=== PATIENT | male | born 1945 | race Caucasian/White ===

== ENCOUNTER 2025-04-07 18:58 | Emergency (ER) | payer MEDICARE, SELFPAY ==
[2025-04-07 19:00] VITALS: BP 114/78; PULSE 55; RESP 13; TEMP 36.5; O2SAT 95; BMI 42.7
--- NOTE | 2025-04-07 19:22 | EX.ED.DYSGE1 ---
HPI History of Present Illness Chief Complaint: Syncope Detail of Chief Complaint: Syncope Informant: patient Narrative Narrative: Patient presents via EMS for syncopal episode that occurred this afternoon. Patient states that they had driven down from [facility] to go to a restaurant. Once they get to the restaurant the patient did not feel well. He has been having bouts of chronic diarrhea for months for which he has seen nurse head and his primary care physician. He states that he got up to use the restroom and had large amount of watery stool. Came back to the table and continued to feel poorly and went back and had a second bout of watery stool. Patient stood up off the toilet and started having the room spinning around and around then he was diaphoretic. People helped him into his seat and then he became unresponsive for about 30 seconds. EMS was called and he was brought to the emergency department. He denies any chest pain or shortness of breath. He states he had a heart cath last August that did not show any blockages and he did not require any type of intervention. PFSH PFS Medical History no medical history Home Medications ?Medication ?Instructions ?Recorded ?Last Taken ?Type ondansetron 4 mg disintegrating 4 mg PO Q8H PRN PRN Nausea #10 tabs 04/07/25 Unknown Rx tablet Allergy/AdvReac Type Severity Reaction Status Date / Time Penicillins Allergy Hives Verified 04/07/25 19:43 levetiracetam (From [facility]) AdvReac unknown Verified 04/07/25 19:43 Family History no significant family his Surgical History no surgical history Social History Smoking Status: Former smoker ROS ROS ED ROS Narrative Syncope Review of Systems ROS Unobtainable: other Constitutional Constitutional ED: Reports lethargy; Denies chills, fever(s), sweats or weight loss Eyes Eyes: Denies blurry vision, change in vision or diplopia ENT ENT ED: Denies rhinorrhea or sore throat Cardiovascular Cardiovascular: Denies chest pain, orthopnea or racing heartbeat Respiratory/Chest Respiratory/Chest: Reports dyspnea and dyspnea on exertion; Denies cough, orthopnea or sputum Gastrointestinal Gastrointestinal: Reports diarrhea and nausea; Denies abdominal pain or vomiting Genitourinary Genitourinary ED: Denies dysuria, hematuria or urinary frequency Musculoskeletal Musculoskeletal: Denies arthralgias, back pain, myalgias or neck pain Integumentary Denies abscess, Abrasions or rash Neurologic Neurologic: Denies headache(s) or weakness Psychiatric Psychiatric: Denies anxiety, depression or suicidal thoughts Endocrine Endocrinology: Denies polydipsia, polyphagia or polyuria Hematologic/Lymphatic Hematologic/Lymphatic: Denies easy bleeding, easy bruising or lymphadenopathy Allergic/Immunologic Allergic/Immunologic ED: Denies mouth swelling, tongue swelling or urticaria EXAM Physical Exam Const Vital Signs: 04/07/25 19:00 04/07/25 19:40 04/07/25 20:00 Temperature 97.7 F L Temperature Source Oral Pulse Rate 55 L 62 Respiratory Rate 13 12 Respiratory Effort Normal Non-Labored Respiratory Pattern Normal Blood Pressure 114/78 125/51 H Blood Pressure Mean 90 75 Pulse Ox 95 95 Oxygen Delivery Method Room Air Room Air 04/07/25 21:01 Temperature Temperature Source Pulse Rate 57 L Respiratory Rate 16 Respiratory Effort Respiratory Pattern Blood Pressure 119/48 L Blood Pressure Mean 71 Pulse Ox 95 Oxygen Delivery Method Room Air Positive well nourished and well developed General Appearance ED: well developed and NAD HEENT Reports TM's clear and moist mucous membranes normocephalic and atraumatic; Negative for trauma or tenderness Tympanic Membrane ED: Yes TM's clear Eyes PERRL and EOMs intact bilaterally General Eye ED: Negative for pale conjunctiva or scleral icterus Neck no lymphadenopathy, supple and no JVD General: Negative for tenderness Chest Wall inspection of chest normal and palpation of chest normal Chest: Negative for tenderness Resp normal respiratory effort and clear to auscultation bilaterally Effort and Inspection: Negative for respiratory distress or pain with movement Auscultation: Negative for rhonchi, wheezes or diminished lung sounds Cardio regular rate, regular rhythm, S1 normal heart sound, S2 normal heart sound and no murmurs Peripheral Pulses: pulses 2+ throughout GI normal to inspection, nondistended, normoactive bowel sounds, soft to palpation, non-tender, non-distended and no masses Back/Spine no CVA tenderness and no thoracic nor lumbar tenderness Extremity normal to inspection General Extremety ED: Negative for edema General Extremity: Negative for edema Neuro oriented x3, CN's II-XII intact bilaterally, no sensory deficits noted and gait normal Sensorium / Orientation: awake, alert, oriented to person, oriented to place and oriented to time Motor Exam: strength 5/5 throughout and strength abnormal Psych mental status grossly normal Skin no rashes or lesions noted and no wounds MDM MDM MDM Narrative Medical decision making narrative: Patient presents with a syncopal episode. He had diarrhea prior to the syncopal episode. He has had chronic diarrhea for months for which she is following up with GI. He has had testing for C. difficile apparently and has been negative. Patient denies chest pain or shortness of breath. Abdominal exam is benign. Suspect likely vasovagal episode. IV line established. 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 EKG obtained showed a sinus bradycardia with rate of 53 bpm with first-degree AV block and no acute ST segment changes. CBC with differential shows a white count of 11.3 with hemoglobin 12.9 and platelet count of 233. Chemistries unremarkable. Other than a low potassium of 3.0 for which I did give him 40 mEq of potassium chloride p.o. Calcium slightly depressed at 7.5. Patient received a liter of fluid bolus and was given Zofran 4 mg IV and felt markedly improved after treatment. At this point will discharge to home. Will give a prescription for Zofran. Advised to follow-up with primary care physician within next 3 to 5 days. Lab Data Attestation: I reviewed the patient's lab results. Labs: Laboratory Results - last 24 hr 04/07/25 19:50 WBC 11.3 H RBC 4.18 L Hgb 12.9 L Hct 39.0 L MCV 93.3 MCH 30.9 MCHC 33.1 RDW Std Deviation 46.3 H RDW Coeff of [place] 13.7 Plt Count 233 MPV 9.6 Immature Gran % (Auto) 0.500 Neut % (Auto) 70.3 H Lymph % (Auto) 21.2 [place] % (Auto) 5.1 Eos % (Auto) 2.3 Baso % (Auto) 0.6 Absolute Neuts (auto) 7.9 H Absolute Lymphs (auto) 2.39 Nucleated RBC % 0 Sodium 141 Potassium 3.0 L Chloride 104 Carbon Dioxide 22.4 Anion Gap 15 BUN 11 Creatinine 1.02 Estim Creat Clear Calc 79.93 Est GFR (MDRD) Non-Af 74 BUN/Creatinine Ratio 11.1 Glucose 104 H Calcium 7.5 L EKG Initial EKG: Attestation: I personally reviewed and interpreted this EKG as follows: Comments: Sinus rhythm with ventricular rate of 53 bpm with a first-degree AV block Discharge Plan Triage Chief Complaint: Syncope Other Complaint: Nausea/Vomiting/Diarrhea ED Provider: Holly Mckinnon Dx/Rx/DC Orders Clinical Impression: Syncope, vasovagal Instructions: ED Fainting, Vagal Reaction Prescriptions: New ondansetron 4 mg tablet,disintegrating 4 mg PO Q8H PRN PRN (Reason: Nausea) Qty: 10 0RF Primary Care Provider: Narinder Rivera,Out of Referrals: [facility] ,Out of [Primary Care Provider] - Activity Restrictions/Additional Instructions: Follow-up with your primary care physician within next 3 to 5 days. Print Language: Persian Disposition Disposition: Home, Self Care
[2025-04-07] MEDS: Ondansetron 4 MG/2 ML Vial IV (19:36)
[2025-04-07] MEDS: 0.9% Normal Saline (1000mL) 1,000 ML 1000 ML IV (19:36)
[2025-04-07 19:59] LABS: Absolute Lymphocyte Count 2.39 X10^3/uL (0.83-4.51); Absolute Neutrophil Count 7.9 X10^3/uL (2.0-7.7); Basophil# 0.07 X10^3/uL; Basophil% 0.6 % (0-1); Eosinophil# 0.26 X10^3/uL; Eosinophils% 2.3 % (0-5); Hemoglobin 12.9 g/dL (13.0-16.5); Lymphocyte # 2.39 X10^3/ul (0.83-4.51); Lymphocyte % 21.2 % (19-41); Mean Corp Hgb Conc 33.1 g/dL (32-36); Mean Corpuscular Hgb 30.9 pg (27.0-32.0); Mean Corpuscular Volume 93.3 fL (80-94); Mean Platelet Vol. 9.6 fl (6.2-12.0); Monocyte# 0.57 X10^3/uL; Monocyte% 5.1 % (0-10); NRBC Flagged by Analyzer 0 % (0-5); Neutrophil # 7.93 X10^3/uL (2.7-7.7); Neutrophil % 70.3 % (47-70); Platelet Count 233 K/mm3 (150-450); RBC Distribution Width CV 13.7 % (11.6-14.6); RBC Distribution Width SD 46.3 fl (35.1-43.9); Red Blood Count 4.18 M/mm3 (4.6-6.2); White Blood Count 11.3 K/mm3 (4.4-11.0)
[2025-04-07 20:00] VITALS: BP 125/51; PULSE 62; RESP 12; O2SAT 95
[2025-04-07 20:52] LABS: Anion Gap 15 (5-15); BUN 11 mg/dL (4-19); BUN/Creat Ratio 11.1 RATIO (10-20); Calcium,Total 7.5 mg/dL (7.6-11.0); Carbon Dioxide 22.4 mmol/L (21.0-32.0); Chloride 104 mmol/L (98-108); Creatinine, Serum 1.02 mg/dL (0.70-1.20); EST Glomerular Filtration Rate 74 (>60); Estimated Creatinine Clearance 79.93 ml/min (50-250); Glucose 104 mg/dL (70-99); Sodium Level 141 mmol/L (133-145)
[2025-04-07 21:01] VITALS: BP 119/48; PULSE 57; RESP 16; O2SAT 95
[2025-04-07 21:29] VITALS: BP 142/85; PULSE 59; RESP 16; TEMP 36.5; O2SAT 95
[2025-04-07] MEDS: Potassium Chloride Oral Tablet 20 MEQ 40 MEQ PO (21:31)
== END 2025-04-07 22:00 | disposition home or self-care (01) ==
PROVIDERS: Emergency Provider Emergency Medicine; Visit Provider Emergency Medicine
DX: R55 Syncope and collapse (principal); K52.9 Noninfective gastroenteritis and colitis, unspecified; I44.0 Atrioventricular block, first degree; E87.6 Hypokalemia; Z87.891 Personal history of nicotine dependence
CPT/HCPCS: 80048; 85025; 93005; 96361; 96374; 99285; J2405